=== PATIENT | male | born 1955 | race Caucasian/White ===

== ENCOUNTER 2020-10-12 06:42 | Day surgery (SDC) | payer MEDICARE ==
[2020-10-11 13:27] LABS: COVID AG,FIA SOURCE NASOPHARYNGEAL
[2020-10-11 13:34] LABS: BASOPHILS % (AUTO) 0.5 % (0.0-2.0); EOSINOPHILS % (AUTO) 1.8 % (1.0-6.0); HEMOGLOBIN 12.7 g/dL (13.5-17.5); LYMPHOCYTES # (AUTO) 1.9 K/uL (1.0-4.8); LYMPHOCYTES % (AUTO) 23.4 % (22.0-44.0); MEAN CORPUSCULAR HEMOGLOBIN 29.4 pg (26.0-34.0); MEAN CORPUSCULAR HGB CONC 33.4 G/dL (31.0-37.0); MEAN CORPUSCULAR VOLUME 88 fL (80-100); MONOCYTES # (AUTO) 0.8 K/uL (0.1-1.0); MONOCYTES % (AUTO) 9.5 % (2.0-9.0); NEUTROPHILS # (AUTO) 5.3 K/uL (1.8-7.7); NEUTROPHILS % (AUTO) 64.8 % (40.0-70.0); PLATELET COUNT (AUTO) 171 K/uL (150-450); RED BLOOD CELL COUNT(AUTO) 4.31 MIL/uL (4.50-5.90); RED CELL DISTRIBUTION WIDTH 15.1 % (11.5-14.5)
[2020-10-11 13:41] LABS: CALCIUM, TOTAL 9.5 mg/dL (8.8-10.5); CREATININE 1.3 mg/dL (0.60-1.30); POTASSIUM 4.3 mmol/L (3.5-5.1)
[2020-10-11 13:45] LABS: PROTHROMBIN TIME 10.6 SEC (9.4-11.6)
[2020-10-11 13:47] LABS: ALBUMIN 3.7 g/dL (3.4-5.0); BILIRUBIN,TOTAL 0.5 mg/dL (0.1-1.0); TOTAL PROTEIN, SERUM 7.4 g/dL (6.4-8.2)
[~2020-10-12] VITALS: Ht 167.6 cm; Wt 97.3 kg
[2020-10-12] MEDS ORDERED: SODIUM CHLORIDE 0.9% 1,000 ML ONE (06:47)
[2020-10-12] MEDS ORDERED: SODIUM CHLORIDE 0.9% 1,000 ML IV ONE ×2 (07:00→09:45)
[2020-10-12] MEDS ORDERED: TRAZ-252 PO (07:05)
[2020-10-12] MEDS ORDERED: GABA-1181 PO (07:05)
[2020-10-12] MEDS ORDERED: FINA5TAB41 PO (07:05)
[2020-10-12] MEDS ORDERED: METF-446 PO (07:05)
[2020-10-12] MEDS ORDERED: LANS30CA55 PO (07:05)
[2020-10-12] MEDS ORDERED: TIZA-194 PO (07:05)
[2020-10-12] MEDS ORDERED: HYDR-3421 PO (07:05)
[2020-10-12] MEDS ORDERED: ISOS60TA77 PO (07:05)
[2020-10-12] MEDS ORDERED: TERA5CAP4 PO (07:05)
[2020-10-12] MEDS ORDERED: NITR0.4T50 SL (07:05)
[2020-10-12] MEDS ORDERED: CLOP75TA32 PO (07:05)
[2020-10-12] MEDS ORDERED: SIMV80TA91 PO (07:05)
[2020-10-12] MEDS ORDERED: SITA100 PO (07:05)
[2020-10-12] MEDS ORDERED: SACU1TAB7 PO (07:05)
[2020-10-12] MEDS ORDERED: POTA-92 PO (07:05)
[2020-10-12] MEDS ORDERED: WARF5TAB40 PO (07:05)
[2020-10-12] MEDS ORDERED: PARO10TA71 PO (07:05)
[2020-10-12] MEDS ORDERED: FURO40TA5 PO (07:05)
[2020-10-12] MEDS ORDERED: IOHEXOL 300 MG/ML 50 ML VIAL ONE (07:20)
[2020-10-12] MEDS ORDERED: LIDOCAINE/PF 1% 30 ML VIAL ONE (07:20)
[2020-10-12] MEDS ORDERED: IOHEXOL 300 MG/ML 100 ML VIAL ONE (07:20)
[2020-10-12] MEDS ORDERED: SODIUM BICARBONATE 50 MEQ/50 ML VIAL ONE (07:20)
[2020-10-12] MEDS ORDERED: HEPARIN SODIUM 1000 UNITS/NS 1,000 ML ONE (07:20)
[2020-10-12 07:28] LABS: GLUCOMETER DEV NAME(LOC) SDS.; GLUCOSE,POINT OF CARE 241 MG/DL (70-110)
[2020-10-12 09:07] VITALS: BP 158/84
[2020-10-12] MEDS ORDERED: FentaNYL CITRATE PF 100 MCG/2 ML VIAL ONE ×2 (09:20→09:28)
[2020-10-12] MEDS ORDERED: MIDAZOLAM HCL 2 MG/2 ML VIAL ONE ×2 (09:20→09:52)
[2020-10-12] MEDS ORDERED: SODIUM CHLORIDE 0.9% 250 ML IV ONE (09:45)
[2020-10-12] MEDS ORDERED: LIDOCAINE 1% 30 ML/SOD BICARB 8.4% 4 ML SQ ONE (09:45)
[2020-10-12] MEDS ORDERED: FentaNYL CITRATE PF 100 MCG/2 ML VIAL IVP ONE ×7 (09:45→10:15)
[2020-10-12] MEDS ORDERED: HEPARIN SODIUM 1000 UNITS/NS 1,000 ML IARTER ONE (09:45)
[2020-10-12] MEDS ORDERED: IOHEXOL 300 MG/ML 100 ML VIAL IARTER ONE ×2 (09:45→10:00)
[2020-10-12] MEDS ORDERED: MIDAZOLAM HCL 2 MG/2 ML VIAL IVP ONE ×8 (09:45→10:30)
[2020-10-12] MEDS ORDERED: HEPARIN SODIUM,PORCINE 5,000 UNITS/ML VIAL IVP ONE ×2 (10:00→10:30)
[2020-10-12] MEDS ORDERED: DiphenhydrAMINE HCL 50 MG/ML VIAL ONE (10:10)
[2020-10-12] MEDS ORDERED: DiphenhydrAMINE HCL 50 MG/ML VIAL IVP ONE ×2 (10:15→10:30)
[2020-10-12] MEDS ORDERED: IOHEXOL 300 MG/ML 50 ML VIAL IARTER ONE (10:15)
[2020-10-12] MEDS ORDERED: NITROGLYCERIN 400 MCG/SUBLINGUAL SPRAY 4.9 GM BOTTLE SL ONE ×2 (10:25→11:00)
[2020-10-12] MEDS ORDERED: METOPROLOL TARTRATE 5 MG/5 ML VIAL ONE (10:30)
[2020-10-12] MEDS ORDERED: HydrALAZINE HCL 20 MG/ML VIAL ONE (10:30)
[2020-10-12 10:37] VITALS: BP 141/77
[2020-10-12] MEDS ORDERED: METOPROLOL TARTRATE 5 MG/5 ML VIAL IVP ONE ×2 (10:45)
[2020-10-12] MEDS ORDERED: HydrALAZINE HCL 20 MG/ML VIAL IVP ONE (10:45)
== END 2020-10-12 17:15 | disposition home or self-care (01) ==
LOC: CATHLAB 06:42
PROVIDERS: ATTEND Specialist
DX: R94.39 Abnormal result of other cardiovascular function study (principal); I25.10 Atherosclerotic heart disease of native coronary artery without angina pectoris; I25.810 Atherosclerosis of coronary artery bypass graft(s) without angina pectoris; I50.40 Unspecified combined systolic (congestive) and diastolic (congestive) heart failure; J44.9 Chronic obstructive pulmonary disease, unspecified; I11.0 Hypertensive heart disease with heart failure; F17.210 Nicotine dependence, cigarettes, uncomplicated; I25.2 Old myocardial infarction; Z79.01 Long term (current) use of anticoagulants
CPT/HCPCS: 36415; 80053; 82962; 85025; 85610; 85730; 87426; 93005; 93459; 99152; 99153; C1769; C1887; C9803; J0360; J1200; J1644 ×2; J2250; J3010; J3490 ×3; J7030; Q9967